=== PATIENT | female | born 1955 | race Caucasian/White ===

== ENCOUNTER 2022-03-06 13:29 | Outpatient (CLI) | payer OTHER, SELFPAY | END 2022-03-06 13:30 | disposition home or self-care (01) | LOC: NFLDREF 03-10 11:03 | PROVIDERS: PCP Physician Assistant Medical; Visit Provider Obstetrics & Gynecology | DX: N39.0 Urinary tract infection, site not specified (principal) | CPT/HCPCS: 87086 ==

== ENCOUNTER 2022-04-02 01:46 | Emergency (ER) | payer OTHER, SELFPAY ==
[2022-04-02 01:55] VITALS: BP 176/96; PULSE 84; RESP 22; TEMP 35.6; O2SAT 95
--- NOTE | 2022-04-02 02:12 | CRLHL7_ITS ---
For Patients: As a result of the Cures Act, medical imaging exams and procedure reports are released immediately into your electronic medical record. You may view this report before your referring provider. If you have questions, please contact your health care provider. INDICATION: Cough TECHNIQUE: Chest radiograph 2 views COMPARISON: None FINDINGS: The sensitivity and specificity of the exam are moderately limited by the patient`s body habitus. Mediastinum: The mediastinum is normal in appearance. The heart silhouette is normal in size and morphology. Mild elevation of the left hemidiaphragm is noted. Lung: Both lungs are unremarkable in appearance. No sign of pleural effusion seen. No pneumothorax is identified. Bone and Soft tissue: Unremarkable for age. IMPRESSION: 1. No acute cardiopulmonary disease is seen. Dictated by Jesus Ahuja MD @ 04/02/2022 2:37:11 AM Dictated by: Jesus Ahuja MD @ 04/02/2022 02:37:14 (Electronically Signed)
--- NOTE | 2022-04-02 02:26 | ED_ITS ---
HPI - SOB/Dyspnea General Chief Complaint: Shortness of Breath/Dyspnea Stated Complaint: trouble breathing. Time Seen by Provider: 04/02/22 02:10 History of Present Illness HPI Narrative: 66-year-old woman presenting with complaint of cough. Four days of illness. No particular exposures. She says she thought it was getting better yesterday and got worse again today. I think I have bronchitis. Does have a diagnosis of asthma she says. She would appreciate a nebulizer treatment. No fever. No chest pain. Related Data Home Medications Medication Instructions Recorded Confirmed albuterol 90 mcg/actuation aerosol 2 spray inhalation PRN 02/24/22 03/16/22 inhaler amoxicillin 500 mg capsule mg PO ONCE 02/24/22 03/16/22 calcium carbonate 600 mg calcium 1,200 mg PO QDAY 02/24/22 03/16/22 (1,500 mg) tablet cetirizine 10 mg disintegrating 10 mg PO DAILY 02/24/22 03/16/22 tablet cholecalciferol (vitamin D3) 25 1,000 unit PO DAILY 02/24/22 03/16/22 mcg (1,000 unit) tablet cyclobenzaprine 10 mg tablet 10 mg PO PRN 02/24/22 03/16/22 fluticasone 250 mcg-salmeterol 50 1 inhalation BID 02/24/22 03/16/22 mcg/dose blistr powdr for inhalation fluticasone propionate 50 1-2 intranasal DAILY 02/24/22 03/16/22 mcg/actuation nasal spray,suspension folic acid 1 mg tablet 1 mg PO DAILY 02/24/22 03/16/22 ketoconazole 2 % topical cream 1 applic topical .Daily as needed 02/24/22 03/16/22 PRN lorazepam 1 mg tablet mg PO PRN 02/24/22 03/16/22 methotrexate 2.5 mg/mL oral PO 02/24/22 03/16/22 solution metoprolol succinate 25 mg 25 mg PO QDAY 02/24/22 03/16/22 tablet,extended release 24 hr multivitamin 1 tab PO QAM 02/24/22 03/16/22 tramadol 50 mg tablet 50 mg PO PRN 02/24/22 03/16/22 triamcinolone acetonide 0.1 % 1 applic topical PRN 02/24/22 03/16/22 topical cream Previous Rx's Medication Instructions Recorded sulfamethoxazole 400 1 tab PO BID #14 tabs 03/06/22 mg-trimethoprim 80 mg tablet (Bactrim) albuterol sulfate 2.5 mg/0.5 mL 2.5 mg (0.5 mL) inhalation QID PRN 04/02/22 solution for nebulization #30 ea Allergies Allergy/AdvReac Type Severity Reaction Status Date / Time Cephalosporins Allergy Nausea Verified 03/16/22 15:20 montelukast Allergy tachycardia Verified 03/16/22 15:20 morphine Allergy Vomiting Verified 03/16/22 15:20 simvastatin Allergy blurred Verified 03/16/22 15:21 vision and muscle weakness Sulfa (Sulfonamide Allergy Nausea Verified 03/16/22 15:20 Antibiotics) trimethoprim Allergy Nausea Verified 03/16/22 15:20 Review of Systems Status of ROS: Reports: 6 or more systems reviewed and unremarkable except as noted in History and below 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 . Nonsmoker. No alcohol use. Smoking Status: Never smoker How often do you have a drink containing alcohol: never How often do you have six or more drinks on one occasion: Never AUDIT-C Alcohol total score: 0 Non-prescribed substance use: denies use service: No Exam Narrative: Exam Narrative: Very pleasant. Calm. Not particularly tachypneic. Mildly labored with her breathing. Nasopharyngeal congestion. Cranial nerves 2-12 intact. Oropharynx is moist. Lungs sound congested. Tight. End-expiratory wheezing. Cardiovascular with regular rate and rhythm no murmur rub or gallop identified. Extremities are without edema. She is well-perfused. Const: Vital Signs, click to edit/add: Vital Signs - 24 hr 04/02/22 01:55 04/02/22 02:54 Temperature 96.1 F L Pulse Rate [Right Pulse Oximeter] 84 Respiratory Rate 22 Blood Pressure [Le ft Upper Arm] 176/96 H Pulse Oximetry 95 97 Oxygen Delivery Me thod Room Air Room Air Documenting provider has reviewed patient's vital signs: yes Course Vital Signs Vital signs: Initial Vital Signs Respiratory Effort 04/02/22 01:54 Respiratory Depth Normal 04/02/22 01:54 Respiratory Pattern 04/02/22 01:54 Vital Signs Temperature 96.1 F L 04/02/22 01:55 Pulse Rate 84 04/02/22 01:55 Respiratory Rate 22 04/02/22 01:55 Blood Pressure 176/96 H 04/02/22 01:55 Pulse Oximetry 95 04/02/22 01:55 Oxygen Delivery Method 04/02/22 01:55 Temperature 96.1 F L 04/02/22 01:55 Pulse Rate 84 04/02/22 01:55 Respiratory Rate 22 04/02/22 01:55 Blood Pressure 176/96 H 04/02/22 01:55 Pulse Oximetry 97 04/02/22 02:54 Oxygen Delivery Method 04/02/22 02:54 MDM - SOB/Dyspnea MDM Narrative Medical decision making narrative: With history of asthma given nebulization and dosing of prednisone. Oxygen saturations temporarily depressed but was between 95 - 97% during time in emergency department. Chest x-ray reviewed by me without acute airspace abnormality. Prescribed prednisone and nebulization refill. Work note. Medical Records Attestation: I reviewed the patient's medical records. Lab Data Attestation: I reviewed the patient's lab results. Labs: Lab Results 04/02/22 Range/Units 02:20 SARS-CoV-2 (PCR) Negative SARS-CoV-2 (Negative) Influenza Type A (PCR) Negative PCR FLU A (Negative) Influenza Type B (PCR) Negative PCR FLU B (Negative) RSV (PCR) POSITIVE PCR RSV A (Negative) Discharge Plan Discharge Clinical Impression: Asthma exacerbation, Acute bronchiolitis due to respiratory syncytial virus Patient Disposition: Home, Self-Care Condition: Improved Additional Instructions: Hydrate. I would use your nebulization 3-4 times daily over the next few days. Return for persistent increasing shortness of breath, chest pain, particularly if accompanied by fever. Four more days of the prednisone will probably be enough. Prescriptions: New albuterol sulfate 2.5 mg/0.5 mL solution for nebulization 2.5 mg inhalation QID PRNQty: 30 0RF No Action cetirizine 10 mg tablet,disintegrating 10 mg PO DAILY cholecalciferol (vitamin D3) 25 mcg (1,000 unit) tablet 1,000 unit PO DAILY fluticasone propionate 50 mcg/actuation spray,suspension 1-2 intranasal DAILY ketoconazole 2 % cream 1 applic topical .Daily as needed PRN lorazepam 1 mg tablet PO PRN albuterol 90 mcg/actuation aerosol 2 spray inhalation PRN folic acid 1 mg tablet 1 mg PO DAILY triamcinolone acetonide 0.1 % cream 1 applic topical PRN cyclobenzaprine 10 mg tablet 10 mg PO PRN amoxicillin 500 mg capsule PO ONCE Rx Instructions: Take 4 capsules (2000mg) one hour prior to dental appointment. tramadol 50 mg tablet 50 mg PO PRN Rx Instructions: pain fluticasone propion-salmeterol 250-50 mcg/dose blister with device 1 inhalation BID multivitamin Tablet 1 tab PO QAM metoprolol succinate 25 mg tablet extended release 24 hr 25 mg PO QDAY methotrexate 2.5 mg/mL solution PO calcium carbonate 600 mg calcium (1,500 mg) tablet 1,200 mg PO QDAY sulfamethoxazole-trimethoprim [Bactrim] 400-80 mg tablet 1 tab PO BID Qty: 14 0RF Follow Up/Referrals: Joselyn Moore PA-C [Primary Care Provider] - Stand Alone Forms: MyHealth Info Instructions
[2022-04-02] MEDS: IPRAT-ALBUT 0.5-2.5 MG/3 ML NEB 1 NEB IH (02:34)
[2022-04-02] MEDS: predniSONE 20 MG TABLET 60 MG PO (02:34)
[2022-04-02 02:54] VITALS: O2SAT 97
[2022-04-02 03:04] LABS: PCR FLU A Negative PCR FLU A (Negative); PCR FLU B Negative PCR FLU B (Negative); PCR RSV POSITIVE PCR RSV (Negative)
[2022-04-02 03:11] LABS: SARS PCR* Negative SARS-CoV-2 (Negative)
== END 2022-04-02 03:58 | disposition home or self-care (01) ==
PROVIDERS: Emergency Provider Family Medicine; PCP Physician Assistant Medical
DX: J45.901 Unspecified asthma with (acute) exacerbation (principal); J20.5 Acute bronchitis due to respiratory syncytial virus
CPT/HCPCS: 71046; 87502; 87634; 87635; 94640; 99283; 99284; 99285; J7512

== ENCOUNTER 2022-06-04 09:03 | Day surgery (SDC) | payer OTHER, SELFPAY ==
[2022-05-30 20:00] VITALS: BP 110/65; PULSE 84; RESP 16; O2SAT 92
[2022-06-04] VITALS (20 sets, daily range): BP systolic 100–149; BP diastolic 50–97; PULSE 78–93; RESP 14–16; TEMP 35.9–36.9; O2SAT 88–99; BMI 37.5
[2022-06-04] MEDS: CELECOXIB 200 MG CAPSULE PO (09:25)
[2022-06-04] MEDS: OXYCODONE (CR) 10 MG TAB.ER.12H PO (09:25)
[2022-06-04] MEDS: ACETAMINOPHEN 500 MG TABLET 1000 MG PO ×2 (09:25→23:17)
[2022-06-04] MEDS: LACTATED RINGERS 1000 ML 1,000 ML 100 ML IV ×2 (09:30→11:00)
[2022-06-04] MEDS: SODIUM CHLORIDE 0.9 % (FLUSH) 10 ML SYRINGE IVF (09:30)
--- NOTE | 2022-06-04 09:40 | SUR.PREOP ---
TIME?OUT:?0945 PT/RN/MDA?VERIFICATION?OF?SURGICAL?SITE,?PROCEDURE,?AND?CONSENT OBTAINED?PRIOR?TO?INVASIVE?PROCEDURE.
[2022-06-04] MEDS: fentaNYL 100 MCG/2 ML inj IVP (09:45)
[2022-06-04] MEDS: MIDAZOLAM HCL 1 MG/ML inj IVP (09:45)
[2022-06-04] MEDS: CEFAZOLIN 2 GM INJ IVP (10:10)
[2022-06-04] MEDS: TRANEXAMIC ACID 100 MG/ML INJ 1000 MG IV (10:15)
--- NOTE | 2022-06-04 11:10 | W.ANESCHARGE ---
Anesthesia Charges Start Date/Time Anesthesia Start Date: 06/04/22 Anesthesia Start Time: 09:59 Stop Date/Time Anesthesia Stop Date: 06/04/22 Anesthesia Stop Time: 12:51 Summary Emergency: No
--- NOTE | 2022-06-04 12:26 | P.ORPRC_ITS ---
Procedure Note Date of procedure: 06/04/22 Procedure: PREOPERATIVE DIAGNOSIS: Right shoulder rotator cuff tear arthropathy POSTOPERATIVE DIAGNOSIS: Right shoulder rotator cuff tear arthropathy NAME OF OPERATION: Right upper extremity reverse shoulder arthroplasty SURGEON: Kameron Bill MD PRN OCCUPATIONAL THERAPIST: Cuca Patel PA-C, NOEMI Gutierrez ANESTHESIA: General endotracheal ESTIMATED BLOOD LOSS: 100 mL COMPLICATIONS: None SPECIMENS: None DRAINS: None PREOPERATIVE ANTIBIOTICS: Ancef 2 grams IMPLANTS: 1. Tornier 25 mm x 35mm baseplate 2. 36mm standard glenosphere 3. 4B humeral stem 4. High eccentric +0 humeral tray 5. 36mm +6 polyethylene INDICATIONS: The patient is a 66-year-old with a longstanding history of severe, unrelenting right shoulder pain secondary to rotator cuff tear arthropathy. Despite appropriate nonoperative management, including activity modification, anti-inflammatories, [id number] pain medication, physical therapy, and injections they continue to have pain and disability. Operative intervention was offered. The risks, benefits and expected outcomes were discussed in detail. These included but were not limited to: Infection, bleeding, injury to blood vessel or nerve, venous thromboembolism. All questions were answered to their satisfaction. Use of an nurse practitioner physician assistant was necessary throughout the case for patient positioning and safety, soft tissue retraction, and closure. A modifier 22 should be applied to this case. History of previous surgery and obesity added time for the dissection. Additionally, the bone quality was so poor that we had to cement the prosthesis, again adding time and cost to the case. PROCEDURE: General anesthesia was administered. The patient was placed in the lazy beach chair position on the operating room table. The right upper extremity was prepped and draped in the usual sterile fashion. A standard deltopectoral incision was made. Subcutaneous dissection was taken with electrocautery to the deltopectoral interval. The cephalic vein was cauterized. We bluntly entered the deltopectoral interval. We freed up the deltoid. The upper 1/3 of the insertion of the pectoralis was divided with cautery. The static retractor was placed. The clavipectoral fascia and CA ligament were divided. The circumflex vessels were controlled with electrocautery. The biceps was dissected out of the bicipital groove, was tagged with a #2 FiberWire suture and divided proximally. The few remaining fibers of the subscap were subperiosteally elevated off of the lesser tuberosity. The humeral head was delivered into the wound. There is a large cyst in the region where the previously placed anchor was. Overall bone quality of the proximal humerus is quite poor. The intramedullary humeral cutting guide was placed. We made the cut at the anatomic neck, in 30? of retroversion. Humeral sounds were used to assess the diameter of the canal. The broach was placed and had good rotational stability. The calcar reamer was used and the protective base plate cover was placed. The greater tuberosity and posterior osteophytes sustained a nondisplaced fracture, during the humeral prep. The lesser tuberosity and calcar remain intact. Attention was then turned to the glenoid. Hohmann retractors were placed posteriorly. The labrum and biceps stump were sharply debrided. The origin of the inferior glenohumeral ligaments were subperiosteally released off of the glenoid. The drill guide was placed. The guide pin was placed in 10? of cephalic tilt. The reamer was used to bleeding bone. The central drill was used x2. The standard base plate was placed. This had excellent purchase. Locking screws were placed. The 36 standard glenosphere was impacted. The set screw was tightened. Attention then returned to the humerus. We placed a high eccentric standard base plate and standard poly. We reduced the shoulder and took it through a range of motion. It was found to be stable with appropriate soft tissue tension. Trial humeral components were removed. The biceps was tenodesed in the bicipital groove with drill holes and our previously placed FiberWire suture. We placed #2 FiberWire sutures in the lesser tuberosity for subsequent subscap repair. A FiberTape suture was placed through drill holes through the anterior shaft, into the canal, out the posterior aspect of the greater tuberosity, back in the posterior aspect of the tuberosity, back into the canal and out the anterior sh aft. This was tied around the prosthesis and was used to stabilize the greater tuberosity fragment. We assembled the humeral component on the back table. Given the poor quality of the bone, we elected to cement the humeral component. Therefore, cement was mixed on the back table. It was allowed to get to a doughy stage and was placed around the distal aspect of the prosthesis. We placed the prosthesis in the center of our subscapularis repair sutures and FiberTape and tapped it down to our humeral cut. The cement was allowed to harden. This had excellent fixation. The shoulder was reduced and again was found to be stable with appropriate soft tissue tension. We did a 3 min dilute Betadine solution soak. We irrigated the wound with 3 L of normal saline via pulse lavage. We repaired the subscapularis to the lesser tuberosity with our previously placed FiberWire sutures. The deltopectoral interval was loosely reapproximated with an 0 Vicryl in an interrupted [id number] fashion. Subcutaneous tissues were closed with the 2-0 Vicryl and a running 3-0 Monocryl suture. The skin was sealed with glue. A dry dressing and sling were applied. Sponge and needle counts were correct x2. The patient tolerated the procedure well, there were no apparent complications. They were awakened and extubated in the operating room, taken to the postanesthesia care unit in satisfactory condition. PLAN: The patient will be mobilized with physical therapy. The sling will be used for 6 weeks postoperatively. Active range of motion in forward flexion and abduction as tolerates. No external rotation greater than 0? for 6 weeks postoperatively. They will be discharged to home once medically appropriate.
--- NOTE | 2022-06-04 12:28 | PM.IMPN1 ---
Progress Note: A&P Assessment and plan (1) Right rotator cuff tear arthropathy: Status: Acute (2) Asthma: Status: Acute (3) Rheumatoid arthritis: Status: Acute Plan s/p Right upper extremity reverse shoulder arthroplasty/ANESTHESIA:? General endotracheal/ESTIMATED BLOOD LOSS:? 100 mL 1) Pain control, diet, dvt ppx per surgery 2) Home meds reviewed/ordered as indicated Subjective Date Seen: 06/04/22 Interval history: s/p Right upper extremity reverse shoulder arthroplasty SURGEON:? Kameron Bill MD ANESTHESIA:? General endotracheal ESTIMATED BLOOD LOSS:? 100 mL patient stable following surgery denies cp,sob denies nausea, vomiting pain controlled has not eaten yet Exam Narrative: Exam Narrative: Gen: no acute distress HEENT: NCAT EOMI mmm CV: RRR normal s1 s2 Lungs: CTAB Abd: Soft,nt, nd Neuro: Alert, oriented, CN grossly intact; nonfocal screening?exam Psych: appropriate affect MSK: age appropriate muscle mass Skin; Warm, dry no rash on face Const: Vital Signs, click to edit/add: Vital Signs - 24 hr 06/04/22 09:30 06/04/22 09:45 06/04/22 09:55 Temperature 98.5 F Pulse Rate 80 80 78 Respiratory Rate 16 16 16 Blood Pressure 149/97 H 141/77 H 117/77 Pulse Oximetry 98 99 99 Oxygen Delivery Me thod Room Air Nasal Cannula Nasal Cannula Oxygen Flow Rate 2 2 06/04/22 09:50 Temperature Pulse Rate 79 Respiratory Rate 16 Blood Pressure 128/82 Pulse Oximetry 99 Oxygen Delivery Me thod Nasal Cannula Oxygen Flow Rate 2
--- NOTE | 2022-06-04 12:56 | W.ANESCHARGE ---
Anesthesia Charges Start Date/Time Anesthesia Start Date: 06/04/22 Anesthesia Start Time: 09:59 Stop Date/Time Anesthesia Stop Date: 06/04/22 Anesthesia Stop Time: 12:51 Summary Emergency: No
--- NOTE | 2022-06-04 12:57 | W.PM.NB ---
Nerve Block Nerve Block Time Seen by Provider: 09:49 Date Seen: 06/04/22 Type of block requested by surgeon for post-operative analgesia: supraclavicular Side: right Time out performed: Yes Verification of patient name: Yes Verification of date of : Yes Site marking: site marked Name of person performing procedure: Juan A Continuous monitoring Was continuous monitoring of O2 sat, B/P, cardiac/vascular sonographer, recorded every 15 minutes?: Yes Procedure Checklist: sterile prep, needles and gloves Ultrasound guided. Images saved: Yes Medications given in 5ml increments after negative aspiration: Ropivicaine %: 0.5 mL: 20 Needle gauge: 22 Decadron (mg): 10 Precedex (mcg): 25 Patient tolerated procedure well: Yes Block Charges Block Charge (with Pro Fee): Brachial Plexus Use of Ultrasound Machine for Block: Yes- US Guidance/pain block
[2022-06-04] MEDS: LACTATED RINGERS 1000 ML 1,000 ML 75 ML IV (13:49)
[2022-06-04] MEDS: ONDANSETRON 2 MG/ML inj 4 MG IVP ×2 (13:52→19:42)
[2022-06-04] MEDS: diphenhydrAMINE 50 MG/ML inj 25 MG IVP (16:51)
[2022-06-04] MEDS: SCOPOLAMINE 1 MG/3 DAY PATCH 1 PATCH TRANSDERMA (16:51)
[2022-06-04] MEDS: CEFAZOLIN 2 GM in 0.9 % SODIUM CHLORIDE Mini-bag 100 ML IVPB (16:52)
--- NOTE | 2022-06-04 20:14 | PC.NURSE ---
Pt arrived to floor @ 1330. Denies pain, Left should, clavicle, arm with complete numbness. @L nasal cannula to maintain sats above 90's. States she has mild nausea, Zofran given w/out relief. Dr. Harris notified and orders given, see MAR. Pt states she has history of nausea post surgery. Pt will return home with boyfriend.
[2022-06-04] MEDS: PROCHLORPERAZINE 5 MG/ML VIAL IVP (22:30)
[2022-06-04] MEDS: SENNOSIDES 1 TAB TABLET 2 TAB PO (23:16)
[2022-06-05] MEDS: CEFAZOLIN 2 GM in 0.9 % SODIUM CHLORIDE Mini-bag 100 ML IVPB ×2 (00:56→08:03)
[2022-06-05 03:00] VITALS: BP 110/58; PULSE 91; RESP 16; TEMP 36.4; O2SAT 94
[2022-06-05] MEDS: ACETAMINOPHEN 500 MG TABLET 1000 MG PO (05:55)
[2022-06-05] MEDS: OXYCODONE 5 MG TABLET PO ×2 (05:56→10:09)
[2022-06-05 06:49] LABS: Hematocrit 39.6 % (33.0-51.0); Hemoglobin* 12.6 gm/dL (12.0-16.0); Mean Corpuscular HGB Conc 32 gm/dL (32-36); Mean Corpuscular Hemoglobin 32 pg (26-34); Mean Corpuscular Volume 99 fL (80-100); Platelet Count* 259 K/uL (140-440); White Blood Count* 16.35 K/uL (4.50-11.00)
[2022-06-05 06:56] LABS: Slide Review Reflex No
[2022-06-05 06:58] LABS: Potassium* 4.7 mmol/L (3.6-5.1); Sodium* 138 mmol/L (135-149)
[2022-06-05 07:00] VITALS: BP 111/71; PULSE 95; RESP 16; TEMP 36.5; O2SAT 94
[2022-06-05 07:01] LABS: Creatinine* 0.6 mg/dL (0.5-1.5); Est. Creatinine Clearance* 38.68; Estimated Glomerular Filt Rate 98 ml/min
[2022-06-05 07:02] LABS: Blood Urea Nitrogen* 22 mg/dL (7-30)
--- NOTE | 2022-06-05 07:39 | PM.ORPN ---
Subjective Subjective Time Seen by Provider: 07:05 Date Seen: 06/05/22 Principal diagnosis: Day 1 s/p right reverse shoulder arthroplasty Interval history: Ammy is doing well this morning and is resting comfortably in bed. Reports minimal right shoulder pain that is well managed with icing, Tylenol and Oxycodone PRN. Denies: nausea, vomiting, fever, chills, chest pain, SOB. Tingling distally has already improved. Denies bowel movement since surgery, but admits to flatulence. No acute events over night. Ortho Exam Narrative Exam Narrative: Incision/Dressing: Dressing appears clean and dry. No drainage present. Mepilex intact. Right shoulder appears moderately swollen but supple with no obvious erythema, fluctuance or excessive warmth. Ice is being utilized as needed. CMS: Intact distally with 2+ Radial pulse. Decreased sensation over deltoid. Sensation confirmed distally. Calf: Bilateral calves are supple, with no swelling, pain, tenderness, erythema, discoloration or coolness to the touch. Constitutional: Patient is alert and oriented x3. Patient is in no acute distress and converses without labored breathing. Patient is able to make decisions and demonstrates good insight. Patient is pleasant and cooperative. Affect is full range and appropriate for the circumstances. Other: Patient is wearing her sling during this visit. Const Vital Signs, click to edit/add: Vital Signs - 24 hr 06/04/22 09:30 06/04/22 09:45 06/04/22 09:55 Temperature 98.5 F Pulse Rate 80 80 78 Pulse Rate [Right Pulse Oximeter] Respiratory Rate 16 16 16 Blood Pressure 149/97 H 141/77 H 117/77 Blood Pressure [Left Arm] Blood Pressure [Left Calf] Pulse Oximetry 98 99 99 Oxygen Delivery Method Room Air Nasal Cannula Nasal Cannula Oxygen Flow Rate 2 2 06/04/22 09:50 06/04/22 12:50 06/04/22 13:10 Temperature 96.7 F L 97.6 F Pulse Rate 79 92 84 Pulse Rate [Right Pulse Oximeter] Respiratory Rate 16 16 16 Blood Pressure 128/82 123/81 115/69 Blood Pressure [Left Arm] Blood Pressure [Left Calf] Pulse Oximetry 99 89 94 Oxygen Delivery Method Nasal Cannula Nasal Cannula Nasal Cannula Oxygen Flow Rate 2 2 2 06/04/22 12:55 06/04/22 13:00 06/04/22 13:05 Temperature Pulse Rate 85 84 86 Pulse Rate [Right Pulse Oximeter] Respiratory Rate 16 16 16 Blood Pressure 110/77 109/65 116/66 Blood Pressure [Left Arm] Blood Pressure [Left Calf] Pulse Oximetry 96 96 96 Oxygen Delivery Method Nasal Cannula Nasal Cannula Nasal Cannula Oxygen Flow Rate 2 2 2 06/04/22 13:15 06/04/22 13:19 06/04/22 13:32 Temperature 97.4 F L Pulse Rate 88 89 84 Pulse Rate [Right Pulse Oximeter] Respiratory Rate 14 16 16 Blood Pressure 102/67 121/73 Blood Pressure [Left Arm] 117/70 Blood Pressure [Left Calf] Pulse Oximetry 96 92 Oxygen Delivery Method Nasal Cannula Room Air Nasal Cannula Oxygen Flow Rate 2 2 06/04/22 13:45 06/04/22 15:15 06/04/22 15:30 Temperature 97.4 F L 97.4 F L 97.4 F L Pulse Rate Pulse Rate [Right Pulse Oximeter] 85 90 86 Respiratory Rate 16 16 16 Blood Pressure Blood Pressure [Left Arm] 117/67 100/67 117/76 Blood Pressure [Left Calf] Pulse Oximetry 93 92 94 Oxygen Delivery Method Nasal Cannula Nasal Cannula Nasal Cannula Oxygen Flow Rate 2 2 2 06/04/22 16:00 06/04/22 16:30 06/04/22 17:00 Temperature 97.7 F Pulse Rate Pulse Rate [Right Pulse Oximeter] 91 85 91 Respiratory Rate 16 16 16 Blood Pressure Blood Pressure [Left Arm] Blood Pressure [Left Calf] 110/73 115/73 121/73 Pulse Oximetry 95 95 95 Oxygen Delivery Method Nasal Cannula Nasal Cannula Nasal Cannula Oxygen Flow Rate 2 2 2 06/04/22 20:00 06/04/22 23:00 06/05/22 03:00 Temperature 97.4 F L 97.6 F 97.5 F L Pulse Rate Pulse Rate [Right Pulse Oximeter] 91 93 91 Respiratory Rate 16 16 16 Blood Pressure Blood Pressure [Left Arm] Blood Pressure [Left Calf] 111/64 100/50 L 110/58 L Pulse Oximetry 88 90 94 Oxygen Delivery Method Room Air Nasal Cannula Nasal Cannula Oxygen Flow Rate 2 2 Documenting provider has reviewed patient's vital signs: yes Assessment and Plan Assessment and plan (1) Right rotator cuff tear arthropathy: Problem details: Day 1 s/p right reverse shoulder arthroplasty (Dr. Bill, 06/04/22) Status: Acute Assessment and Plan: Sling use x 6 weeks postoperative. May remove to work on elbow/hand/wrist ROM. No external rotation of the right shoulder past 0? x 6 weeks. Forward flexion and abduction of the right shoulder is allowed as tolerated. For pain management, Oxycodone and acetaminophen PRN in addition to frequent icing. Minimize use of narcotics. Dressing is waterproof. May shower. Surgical glue covers the wound. Follow-up with a PA in 7-10 days for a wound check. Follow-up with Dr. Bill at 6 weeks postoperative. Contact our clinic at [phone] with any questions or concerns. (2) Asthma: Status: Acute (3) Rheumatoid arthritis: Status: Acute
--- NOTE | 2022-06-05 07:46 | PC.NURSE ---
Pt alert and oriented x3, pleasant and cooperative. Afebrile. Pt reports pain in right shoulder, managed with PRN Oxycodone and scheduled Tylenol. Pt denies chest pain, and SOB. Pt reported nausea with some dry heaving, nausea was managed with PRN Zofran, but it was not effective. MD was updated, MD ordered PRN Compazine. Pt reported feeling better after receiving the Compazine.??Pt right shoulder dressing?is CDI but pt has black and purple bruise around and below the surgical site?that was outlined around 0230, the bruise has not exceeded outline during rest of shift. Pt is SBA with gait belt?to the bathroom. Pt was saline locked at 0500. Pt has had water and crackers and has been tolerating them with no nausea. ??
[2022-06-05] MEDS: SENNOSIDES 1 TAB TABLET 2 TAB PO (08:49)
[2022-06-05] MEDS: IPRAT-ALBUT 0.5-2.5 MG/3 ML NEB 1 NEB IH (08:49)
[2022-06-05] MEDS: FOLIC ACID 1 MG TABLET PO (08:49)
[2022-06-05] MEDS: METOPROLOL SUCCINATE (XL) 25 MG TAB PO (08:50)
[2022-06-05 09:18] VITALS: BP 121/73; PULSE 84; RESP 16; TEMP 36.4
--- NOTE | 2022-06-05 11:38 | PC.NURSE ---
Discharge: Pt. alert and oriented, pleasant and cooperative. Denies, pain/N/V/SOB. Pre-medicated w/PRN oxy prior to working with PT/OT. see eMAR. Pt's dressing to right shoulder, C/D/I. Active ice to op site. Bilateral TEDS and Plexi pulses in use. Pt. was discharged at 1050 via wheelchair to home accompanied by son. Pt's IV removed from left arm intact. Belongings list and discharge instructions signed. Pt. verbalized understanding of both.
== END 2022-06-05 10:50 | disposition home or self-care (01) ==
LOC: OR 09:15 → MEDSURG 09:16
PROVIDERS: PCP Physician Assistant Medical; Visit Provider Orthopaedic Surgery
PROC: 0RRJ0JZ Replacement of Right Shoulder Joint with Synthetic Substitute, Open Approach (ICD-10-PCS; CPT 23472; principal; 2022-06-04 08:30)
DX: M75.101 Unspecified rotator cuff tear or rupture of right shoulder, not specified as traumatic (principal); M25.511 Pain in right shoulder; J45.909 Unspecified asthma, uncomplicated; M06.9 Rheumatoid arthritis, unspecified
CPT/HCPCS: 23472; 01630; 01638; 36415; 64415; 76942; 82565; 84132; 84295; 84520; 85027; 93005; 94640; 97161; 97165; 97535; A9270; C1713; C1776; J0330; J0690; J0780; J1100; J1170; J1200; J2250; J2405; J2704; J2710; J2795; J3010; J3490; J7120; L3670

== ENCOUNTER 2022-09-29 11:15 | Outpatient (RCR) | payer OTHER, SELFPAY ==
--- NOTE | 2022-05-29 15:54 | OT.OPGNE ---
OT Outpatient General/Neuro Eval OT Outpatient General/Neuro Eval Start: 05/29/22 15:39 Freq: Status: Active Protocol: Document 05/29/22 15:43 SMW (Rec: 05/29/22 15:52 SMW [id number]) E-signed By Ailyn Stein OT OT Outpatient Evaluation Details Type Type Eval Complexity Low Insurance Information Insurance Information Insurance Information [employer] Outpatient History/Precautions Medical/Functional History Medical History Reviewed Yes Prior Level of Function/Mobility Lives with spouse. 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 Assessment Assessment Assessment The patient is a 66-year-old female referred to outpatient OT for a shoulder pre op. Patient having a RTSA on . Patient lives with spouse in own home. 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 She has had issues with her left wrist and is wearing a brace to help decrease the pain. She was educated on post op exercises, polar care, one handed dressing techniques, sling management, positioning. She asked appropriate questions. All questions answered satisfactorily. Occupational Therapy Treatment Plan - OP Potential Rehabilitation Potential Excellent Goals Goals Within one visit, the patient will.. 1. be educated on post of recovery of total shoulder arthroplasty. goal met Progress set Certification Certification I Certify That: Therapy Services Provided, Therapy Plan Established, Therapy Plan Reviewed
--- NOTE | 2022-06-18 12:47 | PT.OPEX ---
PT [place] Outpatient Eval PT [facility] Outpatient Eval Start: 06/18/22 10:47 Freq: Status: Active Protocol: Document 06/18/22 10:47 YEYO (Rec: 06/18/22 12:41 YEYO [id number]) E-signed By Lorena Stovall PT Physical Therapy Outpatient Evaluation Insurance Information Insurance Name Medicare B Insurance Information/Comments JACKIE PICHARDO Medical Diagnosis M19.011 RIGHT SHOULDER OA M75.101 RIGHT SHOULDER ROTATOR CUFF TEAR Treating Diagnosis DECREASED ROM DECREASED STRENGTH SYMPTOM MGMT DIFFICULTY WITH ADL'S Referring MD DR. BENITO ZAVALETA Subjective Subjective PATIENT ARRIVES P014 rTSA WITH SLING PROPERLY PLACED AND C/O 2/10 PAIN ABOUT THE SHOULDER; SHE STATES IT'S BEEN PRETTY EASY AND THE PAIN IS SO MUCH BETTER. I'M ABLE TO DO ALL THAT I NEED TO DO AT HOME WITH MY LEFT ARM AND A LITTLE HELP FROM WITH THE HOUSE STUFF Pain Comments PAIN ABOUT THE ANTERIOR SHOULDER AND PROXIMAL UPPER ARM; PAIN MGMT CONSISTS OF FREQUENT USE OF ICE, TYLENOL PRN, AND SLING. 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 Preferred Name SARA Precautions Treatment Precautions/Contraindications NO ER >0 (NEUTRAL) X 6 WEEKS NWB RUE SLING X 6 WEEKS UNLESS PERFORMING THERAPY OR RELAXING AT HOME CLEARED TO BEGIN AAROM/AROM IN FLEX AND ABD TO TOLERANCE Weight Bearing Status Non-Weight Bearing Therapy Limitations/Systems Review Not Limited Objective Other/Pertinent Objective CERVICAL ROM : WFL'S SHOULDER PROM S' FLEX 90 DEGREES S' ABD 85 DEGREES S' ER 0 DEGREES S' IR NT ELBOW ROM ELBOW FLEX 140 DEGREES ELBOW EXT 0 DEGREES WRIST : WFL'S JOINT MOBILITY/PALPATION MIN PAIN ABOUT THE ANTERIOR MEDIAL/ANTERIOR SHOULDER RATING 2/10 INCISION IS WELL MAINTAINED AND APPROXIMATED BY PRIMARY INTENTION (GLUE) MEASURING 4.5 CM X 0.1 CM X 0.0 CM. ABSENT OF DEBRIS, INFLAMMATION, OR BRUISING. PATIENT HAS MOD EDEMA ABOUT THE SHOULDER WITH EXCELLENT MGMT BY WAY OF ICE FREQUENTLY, TYLENOL PRN, AND USE OF SLING. TX: OBSERVED DON/DOF SLING NOTING GOOD FORM AND MAINTAINANCE OF S' PRECAUTIONS. PERFORM PROM TO RIGHT SHOULDER REACHING 90 DEGREES FLEX AND 85 DEGREES ABD W/O TIGHTNESS FELT AT THESE TWO POSITION. PROVIDED EDUCATION ON SYMPTOM MGMT WELL REVIEWED RESTRICTION OF NO S'EXT PAST NEUTRAL (BODY LINE), NO S'IR, NO S'ADD NOR COMBINATION OF ANY OF THE THREE. PATIENT INSTRUCTED TO ALWAYS BE IN EYESIGHT OF HER ELBOW TO MAINTAIN POSITIONING IN THE SCAPULAR PLANE. Exercises Flexion-Extension Shoulder Pendulum with Table Support - 3 x daily - 1-2 sets - 10-15 reps Horizontal Shoulder Pendulum with Table Support - 3 x daily - 1-2 sets - 10-15 reps Circular Shoulder Pendulum with Table Support - 3 x daily - 3 sets - 10 reps - 5 hold Seated Scapular Retraction - 3 x daily - 1-2 sets - 10 reps - 3 hold Seated Shoulder Cradle Shrug - 3 x daily - 5 x weekly - 3 sets - 10 reps - 5 hold Seated Shoulder Flexion Towel Slide at Table Top - 3 x daily - 1-2 sets - 10 reps - 5 hold Seated Elbow Flexion and Extension AROM - 3 x daily - 5 x weekly - 3 sets - 10 reps - 5 hold Seated Wrist Extension with Dumbbell - 3 x daily - 2 sets - 15 reps Seated Wrist Flexion with Dumbbell - 3 x daily - 2 sets - 15 reps Seated Wrist Radial Deviation with Dumbbell - 3 x daily - 2 sets - 15 reps Assessment Assessment/Impression PATIENT IS A [address] BENITO ZAVALETA REFERRED TO PHYSICAL THERAPY POD 14 OF HER rTSA PREFORMED ON 06/04/22. SHE PARTICIPATED IN A PRE-OP SESSION TO TEACH HER PENDULUMS , ELBOW/WRIST/FOREARM AROM, AND DONING/DOFFING SLING. PMHX INCLUDES BUT NOT LIMITED TO OSTEOPOROSIS, OA, RA, ASTHMA, B TKA, B GREAT TOE RECONSTRUCTION D/T BUNION, B THUMB RECONSTRUCTION D/T SEVERE OA, H/O RTC TEAR AND REPAIR (>20YRS), AND DENIES ANY FALLS. 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 SHE ARRIVES TODAY WITH HER SLING PROPERLY POSITIONED AND REPORTS OF 2/ 10 PAIN ABOUT HER ANTERIOR SHOULDER AND PROXIMAL UPPER ARM. HER INCISION IS WELL MAINTAINED AND APPROXIMATED BY PRIMARY INTENTION (GLUE) MEASURING 4.5 CM X 0.1 CM X 0. 0 CM. ABSENT OF DEBRIS, INFLAMMATION, OR BRUISING. PATIENT HAS MOD EDEMA ABOUT THE SHOULDER WITH EXCELLENT MGMT BY WAY OF ICE FREQUENTLY, TYLENOL PRN, AND USE OF SLING . TODAY, OBSERVED HER DON/DOF SLING NOTING GOOD FORM AND MAINTAINANCE OF S' PRECAUTIONS . PERFORM PROM TO RIGHT SHOULDER REACHING 90 DEGREES FLEX AND 85 DEGREES ABD W/O TIGHTNESS FELT AT THESE TWO POSITION. PROVIDED EDUCATION ON SYMPTOM MGMT WELL REVIEWED RESTRICTION OF NO S' EXT PAST NEUTRAL (BODY LINE), NO S'IR, NO S'ADD NOR COMBINATION OF ANY OF THE THREE. PATIENT INSTRUCTED TO ALWAYS BE IN EYESIGHT OF HER ELBOW TO MAINTAIN POSITIONING IN THE SCAPULAR PLANE. PROVIDED PATIENT WITH AN INDIVIDUALIZED, WRITTEN HEP AND PERFORMED EA OF THEM FIRST BY PROVIDING DEMONSTRATION. PATIENT REQUIRED FREQ QUEING TO REDUCE MUSCLE ACTIVATION DURING PENDULUMS WELL BODY POSITIONING IN LIGHT AGE AND BACK POSITIONING. PATIENT DEMONSTRATED A GOOD UNDERSTANDING OF HER HEP BUT WILL NEED A REVIEW OF BODY MECHANICS DURING HER PERFORMANCE NEXT VISIT. SHE IS INSTRUCTED TO PERFORM HER HEP CONSISTENTLY WELL TO BE MINDFUL OF HER DISCOMFORT DURING THE EXERCISES. PATIENT WOULD BENEFIT FROM FURTHER SKILLED PHYSICAL THERAPY INTERVENTION TO ASSIST IN HER RETURN TO FULL USE OF HER RIGHT SHOULDER BY WAY OF ROM, STRENGTHENING, JOINT MOBILIZATION, AND FUNCTIONAL ACTIVITIES WELL SYMPTOM MGMT THROUGHOUT THE RECOVERY. PATIENT VERBALIZED UNDERSTANDING OF ALL SKILLED INSTRUCTION AND AGREEABLE TO POC AND FREQ. Primary Functional Limitations DECREASED ROM DECREASED STRENGTH DECREAESED USE DURING ADL'S REACHING PAIN INFLAMMATION Plan of Care Rehabilitation Potential Excellent Physical Therapy Goals STG 1. PATIENT WILL BE ABLE TO INCREASE PROM FROM 90 TO 150 IN 4 WEEKS 2. PATIENT WILL DEMONSTRATE AROM FROM UNABLE TO 45 DEGREES IN FWD FLEX AND ABD W/O SUBSTITUTION IN 4 WEEKS 3. PATIENT WILL BE INDEPENDENT WITH HER HEP IN 4 WEEKS LT. PATIENT WILL DEMONSTRATES 4 /5 MMT FOR S'FLEX, S'ABD FOR HOUSEHOLD AND RECREATIONAL ACTIVITIES IN 12 WEEKS 2. 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 Coordination/Communication With Referral Source Treatment Plan/Direct Interventions Electrical Stimulation,Gait Training,Ice/Cold/ Vasopneumatic,Joint Mobilization,Manual Therapy, Neuromuscular Re-ed, Therapeutic Activities, Therapeutic Exercises Frequency/Duration 2XWK X 12 WKS Patient Will Be Discharged From Therapy Completion of LTG(s), Independent w/HEP, Independently Progressing Evaluation Billing Untimed Code Treatment Minutes 20 PT Eval No Charge No Complexity Low Certification Information Initial Certification Date 06/18/22 Ending Certification Date 09/10/22 Provider Signature Shows Agreement With POC & Medical Necessity Physician Signature & Date Requested Please Sign/Date Here Physician Comment/Change : Physician NPI Number #
== END 2023-01-27 23:59 | disposition home or self-care (01) ==
PROVIDERS: PCP Physician Assistant Medical; Visit Provider Orthopaedic Surgery
DX: M19.011 Primary osteoarthritis, right shoulder (principal); M75.101 Unspecified rotator cuff tear or rupture of right shoulder, not specified as traumatic; M54.2 Cervicalgia; M25.511 Pain in right shoulder; Z96.611 Presence of right artificial shoulder joint; M47.812 Spondylosis without myelopathy or radiculopathy, cervical region; Z51.89 Encounter for other specified aftercare
CPT/HCPCS: 97110; 97140; 97161; 97165

== ENCOUNTER 2022-11-06 14:57 | Outpatient (RCR) | payer OTHER, SELFPAY ==
--- NOTE | 2022-11-06 15:43 | REH.OT ---
Pt arrived for OT evaluation today, states that she saw DR Inga ([facility] hand specialist) and found out that she ruptured the flexor tendons in her index, middle and ring fingers on her LUE. Pt states she will be undergoing further testing and possible surgery so she would like to hold off on pursuing OT at this time. Discussed adaptive needs, pt has hx of many orthopedic surgeries including other hand surgeries and feel she is aware of and has many of the pieces of AE already. Decision was made to hold off on OT at this point.
== END 2023-03-06 23:59 | disposition home or self-care (01) ==
PROVIDERS: PCP Physician Assistant Medical; Visit Provider Family Medicine
DX: M54.12 Radiculopathy, cervical region (principal); G56.02 Carpal tunnel syndrome, left upper limb; M19.042 Primary osteoarthritis, left hand; M48.02 Spinal stenosis, cervical region; M47.812 Spondylosis without myelopathy or radiculopathy, cervical region; M54.2 Cervicalgia; Z51.89 Encounter for other specified aftercare

== ENCOUNTER 2022-12-11 10:15 | Outpatient (RCR) | payer OTHER, SELFPAY | END 2023-01-28 16:48 | disposition home or self-care (01) | PROVIDERS: PCP Physician Assistant Medical; Visit Provider Orthopaedic Surgery | DX: M54.2 Cervicalgia (principal); Z51.89 Encounter for other specified aftercare | CPT/HCPCS: 97012; 97110; 97140; 97163 ==

== ENCOUNTER 2023-11-12 09:45 | Outpatient (RCR) | payer OTHER, SELFPAY | END 2024-03-11 23:59 | disposition home or self-care (01) | PROVIDERS: PCP Physician Assistant Medical; Visit Provider Orthopaedic Surgery | DX: M65.842 Other synovitis and tenosynovitis, left hand (principal); R53.1 Weakness; Z74.09 Other reduced mobility; Z51.89 Encounter for other specified aftercare | CPT/HCPCS: 97032; 97035; 97110; 97140; 97165; L3933; X5282 ==

== ENCOUNTER 2024-06-02 09:44 | Outpatient (CLI) | payer OTHER, SELFPAY ==
--- NOTE | 2024-06-02 11:29 | P.ANES_ITS ---
Anesthesia Charges Start Date/Time Anesthesia Start Date: 06/02/24 Anesthesia Start Time: 11:02 Stop Date/Time Anesthesia Stop Date: 06/02/24 Anesthesia Stop Time: 11:26 Summary Extremes of Age - Over 70 or under 1: SCHOLASTIC APTITUDE TEST GRADER Coding CPT Codes CPT Codes: RAHEEM LWR INTST SCR COLSC - 32284 ([id number]) P2 - PATIENT W/MILD SYST DISEASE, QZ - SCHOLASTIC APTITUDE TEST GRADER SVC W/O COLLAR BAND CREASER BY Additional Codes: Summary - Extremes of Age - Over 70 or under 1: SCHOLASTIC APTITUDE TEST GRADER ([id number])
--- NOTE | 2024-06-02 11:29 | W.ANESCHARGE ---
Anesthesia Charges Start Date/Time Anesthesia Start Date: 06/02/24 Anesthesia Start Time: 11:02 Stop Date/Time Anesthesia Stop Date: 06/02/24 Anesthesia Stop Time: 11:26 Summary Extremes of Age - Over 70 or under 1: PRODUCTION SKI REPAIRER Coding CPT Codes CPT Codes: RAHEEM LWR INTST SCR COLSC - 69243 ([id number]) P2 - PATIENT W/MILD SYST DISEASE, QZ - PRODUCTION SKI REPAIRER SVC W/O MANUFACTURING PLANT MANAGER BY Additional Codes: Summary - Extremes of Age - Over 70 or under 1: PRODUCTION SKI REPAIRER ([id number])
== END 2024-06-02 09:45 | disposition home or self-care (01) ==
LOC: OP CLINIC 09:46
PROVIDERS: PCP Physician Assistant Medical; Visit Provider Internal Medicine Gastroenterology
DX: Z12.11 Encounter for screening for malignant neoplasm of colon (principal); K57.30 Diverticulosis of large intestine without perforation or abscess without bleeding; Z86.0101 Personal history of adenomatous and serrated colon polyps
CPT/HCPCS: 00812; 45378; 99100; J2704

== ENCOUNTER 2024-12-21 16:00 | Outpatient (RCR) | payer OTHER, SELFPAY | END 2025-04-20 23:59 | disposition home or self-care (01) | PROVIDERS: PCP Physician Assistant Medical; Visit Provider Orthopaedic Surgery Hand Surgery | DX: S66.8 Injury of other specified muscles, fascia and tendons at wrist and hand level (principal); M79.643 Pain in unspecified hand; S66.802D Unspecified injury of other specified muscles, fascia and tendons at wrist and hand level, left hand, subsequent encounter; Z51.89 Encounter for other specified aftercare | CPT/HCPCS: 97035; 97110; 97140; 97165; X5282 ==